=== PATIENT | female | born 1945 | race American Indian/Alaskan Native ===

== ENCOUNTER 2017-06-21 10:46 | Inpatient (IN) | payer MEDICARE ==
[2017-06-21 10:46] VITALS: BMI 30.5
[2017-06-21] MEDS ORDERED: Sodium Chloride 0.9% 1,000 ML IV ONE (11:34)
[2017-06-21] MEDS ORDERED: Sodium Chloride 0.9% 1,000 ML ONE (11:44)
[2017-06-21 11:48] LABS: BASO % 0.5 % (0.0-2.0); EOS # 0.1 K/uL (0.0-0.7); EOS % 1.2 % (0.0-4.0); HEMATOCRIT 41.1 % (34.0-47.0); LYMPH # 1.8 K/uL (1.0-4.3); MEAN CELL VOLUME 87.9 fL (81.0-99.0); MEAN CORPUSCULAR HEMOGLOBIN 30.4 pg (27.0-31.0); MEAN CORPUSCULAR HGB CONC 34.6 g/dL (33.0-37.0); MEAN PLATELET VOLUME 10.7 fL (7.2-11.7); MONO # 0.6 K/uL (0.0-0.8); MONO % 9.5 % (0.0-10.0); RED CELL DISTRIBUTION WIDTH 13.5 % (11.5-14.5); WHITE BLOOD COUNT 5.9 K/uL (4.8-10.8)
[2017-06-21 11:59] LABS: CHLORIDE 95 mmol/L (98-107); POTASSIUM 4.3 mmol/L (3.6-5.2); SODIUM 130 mmol/L (132-148)
--- NOTE | 2017-06-21 12:00 | RAD ---
HISTORY: chest pain COMPARISON: No prior. TECHNIQUE: Chest PA and lateral FINDINGS: LUNGS: No active pulmonary disease. PLEURA: No significant pleural effusion identified. No pneumothorax apparent. CARDIOVASCULAR: Normal. OSSEOUS STRUCTURES: No significant abnormalities. VISUALIZED UPPER ABDOMEN: Normal. OTHER FINDINGS: None. IMPRESSION: No active disease.
[2017-06-21 12:01] LABS: AST/SGOT 30 U/L (14-36); BILIRUBIN,TOTAL 0.6 mg/dL (0.2-1.3); CARBON DIOXIDE 27 mmol/L (22-30); GFR AFRICAN-AMERICAN > 60
[2017-06-21 12:02] LABS: ALB/GLOB RATIO 1.4 (1.0-2.1); ALKALINE PHOSPHATASE 105 U/L (38-126); ALT/SGPT 29 U/L (9-52); CALCIUM 9.2 mg/dl (8.6-10.4); GLUCOSE,RANDOM 294 mg/dL (65-105); TOTAL PROTEIN 7.5 g/dL (6.3-8.3)
[2017-06-21 12:05] LABS: BLOOD UREA NITROGEN 18 mg/dL (7-17)
--- NOTE | 2017-06-21 12:09 | CT ---
PROCEDURE: CT HEAD WITHOUT CONTRAST. HISTORY: dizziness COMPARISON: None available. TECHNIQUE: Axial computed tomography images were obtained through the head/brain without intravenous contrast. Radiation dose: Total exam DLP = 842.30 mGy-cm. This CT exam was performed using one or more of the following dose reduction techniques: Automated exposure control, adjustment of the mA and/or kV according to patient size, and/or use of iterative reconstruction technique. FINDINGS: HEMORRHAGE: No intracranial hemorrhage. BRAIN: Diffuse atrophy with prominence of the ventricles and sulci noted. No mass effect or edema. Intracranial atherosclerotic calcifications. Scattered periventricular and subcortical white matter hypodensities, which are nonspecific, but often seen with chronic microvascular ischemic disease. Please note that MRI with diffusion imaging is more sensitive in the detection of acute ischemic event. VENTRICLES: No hydrocephalus. CALVARIUM: Unremarkable. PARANASAL SINUSES: Unremarkable as visualized. No significant inflammatory changes. MASTOID AIR CELLS: Small fluid/opacification of the right mastoid air cells; correlate clinically for mastoiditis. The left mastoid air cells appear clear. OTHER FINDINGS: None. IMPRESSION: Generalized atrophy. Nonspecific white matter changes. Small fluid/opacification of the right mastoid air cells; correlate clinically for mastoiditis.
--- NOTE | 2017-06-21 12:38 | C.PDOC ---
History Of Present Illness 71 yo female w/PMHx of HTN, NIDDM, glaucoma come in for evaluation of dizziness describes as lightheaded gradual developed for past 3-4 days associated with weakness. Pt sts, " feels unsteady on my feet, was unable to go to [employer] yesterday". Otherwise, pt denies fever, chills, recent illness, denies headache , vertigo, blurry vision/change in vision, focal deficits, neck pain, CP, SOB, dyspnea, diaphoresis, palpitation, abd. pain, N/V/D, UTI sx. Ambulate to ED for evaluation, not in any apparent distress. Time Seen by Provider: 06/21/17 11:06 Chief Complaint (Nursing): Dizziness/Lightheaded History Per: Patient, Family Onset/Duration Of Symptoms: Gradual Current Symptoms Are (Timing): Still Present Past Medical History Reviewed: Historical Data, Nursing Documentation, Vital Signs Vital Signs: Last Vital Signs Temp 97.6 F 06/21/17 10:50 Pulse 82 06/21/17 15:45 Resp 17 06/21/17 15:45 BP 162/98 H 06/21/17 15:45 Pulse Ox 100 06/21/17 15:45 - Medical History PMH: Diabetes, HTN, Hypercholesterolemia Family History: States: No Known Family Hx - Social History Hx Tobacco Use: No Hx Alcohol Use: No Hx Substance Use: No - Immunization History Hx Tetanus Toxoid Vaccination: No Hx Influenza Vaccination: Yes Hx Pneumococcal Vaccination: No Review Of Systems Except As Marked, All Systems Reviewed And Found Negative. Constitutional: Negative for: Fever, Chills Eyes: Negative for: Vision Change ENT: Negative for: Ear Discharge, Nose Discharge, Throat Pain Cardiovascular: Positive for: Light Headedness. Negative for: Chest Pain, Palpitations, Orthopnea, Edema Respiratory: Negative for: Cough, Shortness of Breath Gastrointestinal: Negative for: Nausea, Vomiting, Abdominal Pain, Diarrhea Genitourinary: Negative for: Dysuria Musculoskeletal: Negative for: Neck Pain, Back Pain Skin: Negative for: Rash Neurological: Positive for: Dizziness. Negative for: Weakness, Numbness, Altered Mental Status, Headache Physical Exam - Physical Exam Appears: Well, Non-toxic, No Acute Distress Skin: Normal Color, Warm, Dry, No Rash Head: Normacephalic Eye(s): bilateral: PERRL Ear(s): Bilateral: Normal Nose: No Flaring, No Discharge Oral Mucosa: Moist, No Drooling Throat: No Erythema, No Exudate, No Drooling Neck: Trachea Midline, Supple Cardiovascular: Rhythm Regular, No Murmur, No JVD, Other ((-) carotid bruits B/L ) Respiratory: No Decreased Breath Sounds, No Accessory Muscle Use, No Stridor, No Wheezing Gastrointestinal/Abdominal: No Soft, No Tenderness, No Distention, No Guarding Back: No CVA Tenderness Extremity: Normal ROM, No Pedal Edema, No Deformity Neurological/Psych: Oriented x3, Normal Speech, Normal Motor, Normal Sensation, Normal Reflexes ED Course And Treatment - Laboratory Results Result Diagrams: 06/21/17 11:41 06/21/17 11:41 ECG: Interpreted By Me, Viewed By Me ECG Rhythm: Sinus Rhythm Interpretation Of ECG: SR@82/min, LAD, no acute ST-T canges. O2 Sat by Pulse Oximetry: 100 Pulse Ox Interpretation: Normal - Radiology CXR: Interpreted by Me, Viewed By Me, Read By Radiologist CXR Interpretation: Yes: No Acute Disease. No: Cardiomegaly, Pnemothorax - CT Scan/US Head w/o contrast Other Rad Studies (CT/US): Interpreted By Me, Read By Radiologist CT/US Interpretation: PROCEDURE: CT HEAD WITHOUT CONTRAST. HISTORY: dizziness. COMPARISON: None available. TECHNIQUE: Axial computed tomography images were obtained through the head/brain without intravenous contrast. Radiation dose: Total exam DLP = 842.30 mGy-cm. This CT exam was performed using one or more of the following dose reduction techniques: Automated exposure control, adjustment of the mA and/or kV according to patient size, and/ or use of iterative reconstruction technique. FINDINGS: HEMORRHAGE: No intracranial hemorrhage. BRAIN: Diffuse atrophy with prominence of the ventricles and sulci noted. No mass effect or edema. Intracranial atherosclerotic calcifications. Scattered periventricular and subcortical white matter hypodensities, which are nonspecific, but often seen with chronic microvascular ischemic disease. Please note that MRI with diffusion imaging is more sensitive in the detection of acute ischemic event. VENTRICLES: No hydrocephalus. CALVARIUM: Unremarkable. PARANASAL SINUSES: Unremarkable as visualized. No significant inflammatory changes. MASTOID AIR CELLS: Small fluid/opacification of the right mastoid air cells; correlate clinically for mastoiditis. The left mastoid air cells appear clear. OTHER FINDINGS: None. IMPRESSION: Generalized atrophy. Nonspecific white matter changes. Small fluid/opacification of the right mastoid air cells; correlate clinically for mastoiditis. Progress Note: Pt reamined stable during the ED eavluation. Afebrile, hemodynamicaly stable. NO-toxic. Neuorlogicaly intact. Diagnostics and imaging review, case discussed with ED attending and admission recommend. Case discussed with and admission recommend to med service. Case discussed with and admission arranged. NIHSS Stroke Scale 2 - Date/Time Evaluation Performed Date Performed: 06/21/17 Time Performed: 11:05 When Was NIHSS Performed: Baseline - How Severe is the Stroke Level of Consciousness: 0=Alert LOC to Questions: 0=Both comments correct LOC to commands: 0=Obeys both correctly Best Gaze: 0=Normal Visual: 0=No visual loss Facial: 0=Normal Motor Arm - Left: 0=No drift Motor Arm - Right: 0=No drift Motor Leg - Left: 0=No drift Motor Leg - Right: 0=No drift Limb Ataxia: 0=Absent Sensory: 0=Normal Best Language: 0=No aphasia Dysarthia: 0=Normal articulation Extinction & Inattention (Neglect): 0=Normal, no object Score: 0 Disposition - Disposition Disposition: HOSPITALIZED Disposition Time: 12:43 Condition: STABLE - Clinical Impression Clinical Impression: Dizziness, CVA (cerebral vascular accident)
[2017-06-21] MEDS ORDERED: Enalaprilat 2.5 MG/2 ML IV ONE (15:46)
[2017-06-21 17:13] LABS: URINE BACTERIA RARE (<OCC); URINE BILIRUBIN NEGATIVE (NEGATIVE); URINE BLOOD NEGATIVE (NEGATIVE); URINE COLOR Yellow (YELLOW); URINE GLUCOSE (UA) 3+ mg/dL (Normal); URINE KETONE NEGATIVE (NEGATIVE); URINE LEUKOCYTE ESTERASE NEG Leu/uL (Negative); URINE PROTEIN NEGATIVE (NEGATIVE); URINE UROBILINOGEN NORMAL mg/dL (0.2-1.0); WBC URINE 2 /hpf (0-5)
[2017-06-21] MEDS ORDERED: Enoxaparin 40 mg Syringe ONE (17:41)
[2017-06-21] MEDS ORDERED: Pantoprazole 40 mg EC Tab PO ONE (17:42)
[2017-06-21] MEDS: Enoxaparin 40 mg Syringe SC SCH (17:50)
[2017-06-21] MEDS: Pantoprazole 40 mg EC Tab PO SCH (17:50)
--- NOTE | 2017-06-21 19:06 | CP.PCM.PN ---
Subjective - Date & Time of Evaluation Date of Evaluation: 06/21/17 Time of Evaluation: 12:40 - Subjective Subjective: clinically same Objective - Vital Signs/Intake and Output Vital Signs (last 24 hours): Temp Pulse Resp BP Pulse Ox 97.6 F 87 12 107/55 L 98 06/21/17 10:50 06/21/17 17:49 06/21/17 17:49 06/21/17 17:50 06/21/17 17:49 - Medications Medications: Current Medications Aspirin (Aspirin) 325 mg PO DAILY [facility] Enoxaparin Sodium (Lovenox) 40 mg SC DAILY [facility] Last Admin: 06/21/17 17:50 Dose: 40 mg Meclizine HCl (Antivert) 25 mg PO TID [facility] Last Admin: 06/21/17 17:50 Dose: 25 mg Pantoprazole Sodium (Protonix Ec Tab) 40 mg PO DAILY [facility] Last Admin: 06/21/17 17:50 Dose: 40 mg Rosuvastatin Calcium (Crestor) 10 mg PO HS [facility] - Labs Labs: 06/21/17 11:41 06/21/17 11:41 PT 11.2 SECONDS (9.7-12.2) 06/21/17 11:41 INR 1.0 06/21/17 11:41 APTT 29 SECONDS (21-34) 06/21/17 11:41 - Constitutional Appears: Well - Head Exam Head Exam: ATRAUMATIC, NORMAL INSPECTION, NORMOCEPHALIC - Eye Exam Eye Exam: EOMI, Normal appearance, PERRL Pupil Exam: NORMAL ACCOMODATION, PERRL - ENT Exam ENT Exam: Mucous Membranes Moist, Normal Exam - Neck Exam Neck Exam: Full ROM, Normal Inspection. absent: Lymphadenopathy - Respiratory Exam Respiratory Exam: Decreased Breath Sounds - Cardiovascular Exam Cardiovascular Exam: REGULAR RHYTHM, +S1, +S2 - GI/Abdominal Exam GI & Abdominal Exam: Soft, Diminished Bowel Sounds - Rectal Exam Rectal Exam: Deferred
--- NOTE | 2017-06-21 19:07 | CP.PCM.HP ---
Past Patient History - Infectious Disease Hx of Infectious Diseases: None - Past Social History Smoking Status: Never Smoked - CARDIAC Hx Hypercholesterolemia: Yes Hx Hypertension: Yes - ENDOCRINE/METABOLIC Hx Endocrine Disorders: Yes Hx Diabetes Mellitus Type 2: Yes - PSYCHIATRIC Hx Substance Use: No - SURGICAL HISTORY Hx Surgeries: No Meds Allergies/Adverse Reactions: Allergies Allergy/AdvReac Type Severity Reaction Status Date / Time peanut Allergy Intermediate COUGH Verified 06/21/17 10:55 Physical Exam - Constitutional Appears: Well - Head Exam Head Exam: ATRAUMATIC, NORMAL INSPECTION, NORMOCEPHALIC - Eye Exam Eye Exam: EOMI, Normal appearance, PERRL Pupil Exam: NORMAL ACCOMODATION, PERRL - ENT Exam ENT Exam: Mucous Membranes Moist, Normal Exam - Neck Exam Neck exam: Positive for: Normal Inspection - Respiratory Exam Respiratory Exam: Decreased Breath Sounds - Cardiovascular Exam Cardiovascular Exam: REGULAR RHYTHM, +S1, +S2 - GI/Abdominal Exam GI & Abdominal Exam: Diminished Bowel Sounds, Soft - Rectal Exam Rectal Exam: Deferred Results - Vital Signs Recent Vital Signs: Last Vital Signs Temp 97.6 F 06/21/17 10:50 Pulse 87 06/21/17 17:49 Resp 12 06/21/17 17:49 BP 107/55 L 06/21/17 17:50 Pulse Ox 98 06/21/17 17:49 - Labs Result Diagrams: 06/21/17 11:41 06/21/17 11:41 Labs: Laboratory Results - last 24 hr 06/21/17 06/21/17 06/21/17 11:41 11:41 11:41 WBC 5.9 RBC 4.67 Hgb 14.2 Hct 41.1 MCV 87.9 MCH 30.4 MCHC 34.6 RDW 13.5 Plt Count 196 MPV 10.7 Neut % (Auto) 57.8 Lymph % (Auto) 31.0 Wise % (Auto) 9.5 Eos % (Auto) 1.2 Baso % (Auto) 0.5 Neut # 3.4 Lymph # 1.8 Wise # 0.6 Eos # 0.1 Baso # 0.0 PT 11.2 INR 1.0 APTT 29 Sodium 130 L Potassium 4.3 Chloride 95 L Carbon Dioxide 27 Anion Gap 12 BUN 18 H Creatinine 0.7 Est GFR ( Amer) > 60 Est GFR (Non-Af Amer) > 60 Random Glucose 294 H Calcium 9.2 Total Bilirubin 0.6 AST 30 ALT 29 Alkaline Phosphatase 105 Troponin I < 0.0120 NT-Pro-B Natriuret Pep 15.6 Total Protein 7.5 Albumin 4.4 Globulin 3.1 Albumin/Globulin Ratio 1.4 Urine Color Urine Clarity Urine pH Ur Specific [place] Urine Protein Urine Glucose (UA) Urine Ketones Urine Blood Urine Nitrate Urine Bilirubin Urine Urobilinogen Ur Leukocyte Esterase Urine WBC (Auto) Ur Squamous Epith Cells Urine Bacteria 06/21/17 17:00 WBC RBC Hgb Hct MCV MCH MCHC RDW Plt Count MPV Neut % (Auto) Lymph % (Auto) Wise % (Auto) Eos % (Auto) Baso % (Auto) Neut # Lymph # Wise # Eos # Baso # PT INR APTT Sodium Potassium Chloride Carbon Dioxide Anion Gap BUN Creatinine Est GFR ( Amer) Est GFR (Non-Af Amer) Random Glucose Calcium Total Bilirubin AST ALT Alkaline Phosphatase Troponin I NT-Pro-B Natriuret Pep Total Protein Albumin Globulin Albumin/Globulin Ratio Urine Color Yellow Urine Clarity Hazy Urine pH 6.0 Ur Specific [place] 1.015 Urine Protein Negative Urine Glucose (UA) 3+ H Urine Ketones Negative Urine Blood Negative Urine Nitrate Negative Urine Bilirubin Negative Urine Urobilinogen Normal Ur Leukocyte Esterase Neg Urine WBC (Auto) 2 Ur Squamous Epith Cells 3 Urine Bacteria Rare
[2017-06-22 06:23] LABS: BASO % 0.2 % (0.0-2.0); EOS # 0.1 K/uL (0.0-0.7); HEMATOCRIT 37.6 % (34.0-47.0); LYMPH # 2.5 K/uL (1.0-4.3); LYMPH % 42.7 % (20.0-40.0); MEAN CELL VOLUME 88.2 fL (81.0-99.0); MEAN CORPUSCULAR HEMOGLOBIN 30.2 pg (27.0-31.0); MEAN CORPUSCULAR HGB CONC 34.3 g/dL (33.0-37.0); MEAN PLATELET VOLUME 10.4 fL (7.2-11.7); MONO # 0.6 K/uL (0.0-0.8); MONO % 9.7 % (0.0-10.0); RED CELL DISTRIBUTION WIDTH 13.4 % (11.5-14.5); WHITE BLOOD COUNT 5.8 K/uL (4.8-10.8)
[2017-06-22 06:30] LABS: CHLORIDE 99 mmol/L (98-107); POTASSIUM 4.1 mmol/L (3.6-5.2); SODIUM 132 mmol/L (132-148)
[2017-06-22 06:32] LABS: CHOLESTEROL 166 mg/dL (0-199); GFR AFRICAN-AMERICAN > 60
[2017-06-22 06:33] LABS: BLOOD UREA NITROGEN 16 mg/dL (7-17); CARBON DIOXIDE 25 mmol/L (22-30); GLUCOSE,RANDOM 286 mg/dL (65-105)
[2017-06-22 06:34] LABS: CALCIUM 9.1 mg/dl (8.6-10.4); MAGNESIUM 1.6 mg/dL (1.6-2.3); PHOSPHOROUS 3.8 mg/dL (2.5-4.5)
--- NOTE | 2017-06-22 07:21 | CON ---
NEUROLOGY CONSULTATION DATE: REASON FOR CONSULTATION: Dizziness. HISTORY OF PRESENT ILLNESS: The patient is a 71-year-old female who has been asked for evaluation of dizziness. The patient states that when she woke up yesterday, she started experiencing dizziness, which is described as lightheaded feeling. She did not had any vomiting, but felt nauseous. Did not had any loss of vision. Did not had any focal weakness in arms or legs. Since she was not getting better, she was decided to come to the emergency room. At that moment, she said she is feeling a lot better. Her dizziness is almost gone. She denies any other complaints. REVIEW OF SYSTEMS: Denies any headache, chest pain, shortness of breath, abdominal pain, constipation, diarrhea, dysuria, pyuria, cough, sputum production, or hallucinations. PAST MEDICAL HISTORY: Includes hypertension, diabetes mellitus, and hypercholesterolemia. MEDICATIONS AT HOME: Include metformin, simvastatin, and enalapril. ALLERGIES: PEANUT. SOCIAL HISTORY: She denies smoking, use of alcohol, or illicit drugs. FAMILY HISTORY: Reviewed and noncontributory to the case. PHYSICAL EXAMINATION: GENERAL: The patient is an elderly pleasant female lying on the bed, in no acute distress. VITAL SIGNS: Blood pressure is 107/55, heart rate is 87 per minute, breathing at a rate of 16 per minute, and temperature is 97.6 degrees Fahrenheit. HEENT: Head is normocephalic and atraumatic. NECK: Supple. There are no carotid bruits. LUNGS: Clear. CARDIOVASCULAR: S1 and S2 audible. No murmurs. ABDOMEN: Soft and nontender. Bowel sounds are present. NEUROLOGY: Mental status: The patient is awake, alert, and oriented to time, place and person. Speech is fluent. Naming and repetition is normal. Memory and cognition appear intact. Cranial nerve examination: Pupils; 3 mm bilaterally reactive to light. Visual barron are full. Extraocular movements are intact. There is no facial asymmetry. Palate is upgoing bilaterally and tongue is midline. Motor examination: Tone is normal. Power is 5/5 bilaterally in all extremities. Reflexes are +1 and symmetrical. Plantars are downgoing bilaterally. Cerebellar examination; [id number] shows no dysmetria. Gait is narrow based. Sensory examination: Intact to soft touch and pinprick. LABORATORY DATA: Revealed. CT scan of the head shows generalized atrophy, nonspecific white matter changes. Her blood work including WBC shows 5.9, hemoglobin of 14.2, hematocrit 41.1, and platelets of 196. Sodium is 130, potassium is 4.3, chloride of 95, carbon dioxide of 27, BUN of 18, creatinine 0.7, and glucose of 294. Her urinalysis shows WBCs of 2 and nitrite negative. 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 RECOMMENDATIONS: 1. The patient to have an MRI of the brain without contrast. 2. The patient also to have an electroencephalogram. 3. If the patient's dizziness is better now, we will hold off Antivert; however, if she get dizzy again, we will consider restarting her on Antivert. 4. Please continue other treatment and supportive care. Thank you for the opportunity to participate in the care of this patient. Leander Page MD
--- NOTE | 2017-06-22 09:34 | MRI ---
PROCEDURE: MRI BRAIN WITHOUT CONTRAST HISTORY: dizziness COMPARISON: Prior head CT 06/21/2017. TECHNIQUE: Multiplanar, multisequence MR images of the brain were obtained without intravenous contrast enhancement. FINDINGS: HEMORRHAGE: None DWI: No evidence of an acute or early subacute infarction. BRAIN PARENCHYMA: Diffuse expansion of the ventriculosulcal and cisternal spaces is appreciated with white matter signal changes compatible with diffuse cerebral atrophy and chronic microangiopathy. A small chronic lacune or dilated perivascular space is seen at the medial left temporal lobe anteriorly. The remaining brain parenchyma is unremarkable overall including the brainstem and cerebellum. There is no mass effect. There is no suspicious extra-axial collection. Midline brain anatomy appears grossly unremarkable including the corpus callosum and craniocervical junction. VENTRICLES: Unremarkable. No hydrocephalus. CRANIUM: Unremarkable. ORBITS: Grossly unremarkable. PARANASAL SINUSES/MASTOIDS: Right mastoid effusions identified. VASCULAR SYSTEM: Skull base flow voids intact. OTHER FINDINGS: None. IMPRESSION: Mild age related neuro degenerative changes are reiterated as well as the medial left temporal lobe chronic lacune. No acute intracranial findings including infarction at this time. Follow-up MRI or CT are available as clinically warranted. Incidental right mastoid effusions noted.
[2017-06-22] MEDS: Pantoprazole 40 mg EC Tab PO SCH (09:57)
[2017-06-22] MEDS: Enoxaparin 40 mg Syringe SC SCH (09:57)
[2017-06-22] MEDS: (Novolog) Insulin Aspart, Recombinant 100 u/ml 10 ml vial SC SCH ×2 (16:49→21:10)
--- NOTE | 2017-06-22 18:52 | CP.PCM.PN ---
Subjective - Date & Time of Evaluation Date of Evaluation: 06/22/17 Time of Evaluation: 14:00 - Subjective Subjective: clinically same Objective - Vital Signs/Intake and Output Vital Signs (last 24 hours): Temp Pulse Resp BP Pulse Ox 98.2 F 85 18 107/72 99 06/22/17 04:00 06/22/17 18:51 06/22/17 18:00 06/22/17 17:22 06/22/17 18:00 Intake and Output: 06/22/17 06/22/17 06:59 18:59 Intake Total 100 480 Output Total 0 Balance 100 480 - Medications Medications: Current Medications Aspirin (Aspirin) 325 mg PO DAILY [facility] Last Admin: 06/22/17 09:57 Dose: 325 mg Enalapril Maleate (Vasotec) 20 mg PO DAILY [facility] Last Admin: 06/22/17 12:24 Dose: 20 mg Enoxaparin Sodium (Lovenox) 40 mg SC DAILY [facility] Last Admin: 06/22/17 09:57 Dose: 40 mg Insulin Aspart (Novolog) 0 unit SC [facility] PRN Reason: Protocol Last Admin: 06/22/17 16:49 Dose: 6 unit Metformin HCl (Glucophage) 500 mg PO BID [facility] Last Admin: 06/22/17 17:52 Dose: 500 mg Pantoprazole Sodium (Protonix Ec Tab) 40 mg PO DAILY [facility] Last Admin: 06/22/17 09:57 Dose: 40 mg Pneumococcal Polyvalent Vaccine (Pneumovax 23 Vaccine) 0.5 ml IM .ONCE ONE Stop: 06/23/17 10:01 Rosuvastatin Calcium (Crestor) 10 mg PO [facility] Last Admin: 06/21/17 23:04 Dose: 10 mg - Labs Labs: 06/22/17 06:14 06/22/17 06:10 PT 11.2 SECONDS (9.7-12.2) 06/21/17 11:41 INR 1.0 06/21/17 11:41 APTT 29 SECONDS (21-34) 06/21/17 11:41 - Constitutional Appears: Well - Head Exam Head Exam: ATRAUMATIC, NORMAL INSPECTION, NORMOCEPHALIC - Eye Exam Eye Exam: EOMI, Normal appearance, PERRL Pupil Exam: NORMAL ACCOMODATION, PERRL - ENT Exam ENT Exam: Mucous Membranes Moist, Normal Exam - Neck Exam Neck Exam: Full ROM, Normal Inspection. absent: Lymphadenopathy - Respiratory Exam Respiratory Exam: Decreased Breath Sounds - Cardiovascular Exam Cardiovascular Exam: REGULAR RHYTHM, +S1, +S2 - GI/Abdominal Exam GI & Abdominal Exam: Soft, Diminished Bowel Sounds - Rectal Exam Rectal Exam: Deferred
[2017-06-22] MEDS ORDERED: (Lantus) Insulin Glargine, Recombinant SC SCH (22:00)
[2017-06-23] MEDS: (Novolog) Insulin Aspart, Recombinant 100 u/ml 10 ml vial SC SCH ×4 (08:00→12:10)
[2017-06-23] MEDS ORDERED: Pneumococcal 23-Valent Vaccine IM ONE (10:00)
[2017-06-23] MEDS: Pantoprazole 40 mg EC Tab PO SCH (10:30)
[2017-06-23] MEDS: Enoxaparin 40 mg Syringe SC SCH (10:30)
[2017-06-23 11:08] VITALS: BP 154/87
--- NOTE | 2017-06-23 11:10 | CON ---
DATE: ENDOCRINOLOGY CONSULTATION LOCATION: In ICU room 6. HISTORY OF PRESENT ILLNESS: This is a 71-year-old female with known history of type 2 diabetes, hypertension presenting here with sudden onset of dizziness and lightheadedness progressively worsening from the time of admission with supervening generalized body weakness, especially localized in the lower extremities with increasing dysequilibrium and unsteady gait as noted. She is being referred now for diabetic evaluation because of persistent hyperglycemic acceleration as noted. PAST MEDICAL HISTORY: As mentioned above, history of type 2 diabetes, currently on metformin given as 500 mg b.i.d. History of hypertension, cardiovascular disease, and dyslipidemia. FAMILY HISTORY: Positive for diabetes and hypertension. SOCIAL HISTORY: The patient has a supportive family. No known substance use. REVIEW OF SYSTEMS: As mentioned above, admits to generalized body weakness with increasing bouts of bifrontal headaches with supervening progressively worsening dizziness and lightheadedness, especially on the day of admission. No chest pains, palpitations or PNDs. Her oral intake has been variable with nausea, dyspepsia and vague upper abdominal pain with marked polyuria, nocturia and polydipsia as noted. PHYSICAL EXAMINATION: GENERAL: This is an average built male, in no apparent distress. VITAL SIGNS: Blood pressure 150/90, pulse of 70 beats per minute and regular, temperature is 98, respirations 20. Height is 5 feet 7 inches. Weight is 193 pounds. HEENT: Head is normocephalic. Eyes anicteric with pink conjunctivae. Funduscopy not possible at this time. Ears, nose, and throat otherwise normal. NECK: Supple. Thyroid gland is normal in size. No carotid bruits or cervical adenopathy. CARDIOPULMONARY: Adynamic precordium. S1, S2 is rapid and regular. LUNGS: Clear to auscultation. ABDOMEN: Flat, soft with positive bowel sounds. EXTREMITIES: No peripheral edema. Pulses are +2 bilaterally. LABORATORY DATA: Showed chemistry with a BUN of 16, sodium 132, potassium 4.1, chloride 99, CO2 of 25, glucose 286, creatinine 0.8. Her glucose levels have ranged from 275 to 370 and 374 mg/dL. ASSESSMENT: This is a 71-year-old female with uncontrolled and decompensated type 2 insulin requiring diabetes with marked hyperglycemic accelerations and clearly a suboptimal metabolic profile because of an A1c level of 14.8 here on admission to the hospital. The possibility of an acute cerebrovascular accident with vertebrobasilar insufficiency has to be excluded at this time with subsequent workup to be undertaken. She clearly has possible secondary pancreatic failure with supervening hyperglycemic accelerations which will clearly respond only to insulin therapy at this point in time. Also, pancreas recovers as endogenous pancreatic reserve, many people can go off the prandial insulin given as Humalog 6 units subcu t.i.d. before meals as ordered. However, we will continue the basal insulin with Lantus to be given as 12 units subcu at bedside daily as ordered. We will titrate incremental as indicated to optimize metabolic control. We will obtain serial chemistries and supplement accordingly as needed. We will also arrange for diabetic education and dietary instructions to include insulin self administration. We will follow as advised accordingly. Danika Dao MD
--- NOTE | 2017-06-23 11:50 | EEG ---
DATE: 06/22/2017 INTRODUCTION: This is a digitally recorded EEG monitoring using standard EEG montages. BACKGROUND RHYTHM: The EEG shows a background activity of 8 Hz alpha activity in parietooccipital region. The EEG activity is bilaterally symmetrical and synchronous. There is attenuation of the background activity on eye opening. Drowsiness was noted with slowing of the background activity. ABNORMAL POTENTIALS: No spike, sharp waves, or focal slowing was seen. PHOTIC STIMULATION AND HYPERVENTILATION: Photic stimulation did not reveal any abnormality. Hyperventilation was not performed. IMPRESSION: Normal electroencephalogram. No epileptiform activity is seen in this electroencephalogram recording. Leander Page MD
[2017-06-23 12:25] VITALS: TEMP 98.2
[2017-06-23 12:26] VITALS: PULSE 83; RESP 20; O2SAT 98
--- NOTE | 2017-06-23 13:30 | PN ---
DATE: NEUROLOGY PROGRESS NOTE SUBJECTIVE: The patient is lying on the bed, in no acute distress. Denies having any further dizziness. PHYSICAL EXAMINATION VITAL SIGNS: Her blood pressure is 140/83, heart rate is 86 per minute, breathing at a rate of 16 per minute and her temperature is 98.2 degree Fahrenheit. HEENT: Normocephalic, atraumatic. NECK: Supple. There are no carotid bruits. LUNGS: Clear. CVS: S1 and S2 audible. No murmur. ABDOMEN: Soft and nontender. Bowel sounds are present. NEUROLOGY: Mental status: The patient is awake, alert, and oriented to time, place and person. Speech is fluent. Naming and repetition is normal. Memory and cognition are intact. Cranial nerve examination: Pupils 4 mm bilaterally reactive to light. Visual barron are full. Extraocular movements are intact. There is no facial asymmetry. She is moving all 4 extremities symmetrically. Power is 5/5 all over. Plantars downgoing bilaterally. 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 No intracranial finding including infarction at this time. She had an electroencephalogram, which is normal. IMPRESSION: 1. 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 2. Cerebrovascular disease. RECOMMENDATION: 1. The patient has no further episode of dizziness. 2. The patient to be continued on aspirin because of her underlying cerebrovascular disease. 3. If patient has recurrence of dizziness, then consider starting her on meclizine. 4. The patient is neurologically stable for discharge. 5. No further neurologic recommendation. Please follow Neurology on an as needed basis. Thank you for the opportunity to participate in the care of this patient. Leander Page MD
--- NOTE | 2017-06-23 20:19 | CP.PCM.PN ---
Subjective - Date & Time of Evaluation Date of Evaluation: 06/23/17 Time of Evaluation: 14:00 - Subjective Subjective: clinically same Objective - Vital Signs/Intake and Output Vital Signs (last 24 hours): Temp Pulse Resp BP Pulse Ox 98.2 F 83 20 154/87 H 98 06/23/17 12:00 06/23/17 12:00 06/23/17 12:00 06/23/17 11:07 06/23/17 09:22 Intake and Output: 06/23/17 06/24/17 18:59 06:59 Output Total 300 Balance -300 - Labs Labs: 06/22/17 06:14 06/22/17 06:10 PT 11.2 SECONDS (9.7-12.2) 06/21/17 11:41 INR 1.0 06/21/17 11:41 APTT 29 SECONDS (21-34) 06/21/17 11:41
--- NOTE | 2017-06-24 07:57 | PN ---
ENDOCRINOLOGY FOLLOW UP NOTE DATE: LOCATION: ICU room 6. SUBJECTIVE: This is a 71-year-old female admitted with sudden onset of dizziness and lightheadedness and undergoing neurological workup for possible acute CVA and is now being followed closely for metabolic management. Her glycemic levels are fluctuating, but much improved at this time. The latest glucose levels have ranged from 199 to 280 and 353 mg/dL. It was 380 earlier this morning as noted. The latest chemistry showed a BUN of 16, sodium 132, potassium 4.1, chloride 99, CO2 of 25, glucose 286, and creatinine is 0.8. Her hemoglobin A1c level is extremely elevated at 14.8%, clearly indicative of suboptimal metabolic control of her diabetic condition even prior to this admission. So at this time, we will continue the basal insulin given at the higher dose of Lantus at 20 units subcutaneous at bedtime daily to start tonight. We will continue the metformin given as 500 mg t.i.d. We would recommend Januvia given as 100 mg once daily in the morning as ordered. If hyperglycemic levels persists, especially with meal time, then we will need a premixed insulin regimen to be given twice daily before meals and/or a basal and bolus insulin regimen combination as ordered. We will titrate incremental as indicated to optimize metabolic control. We will follow and advise accordingly. Danika Dao MD
[2017-06-24] MEDS ORDERED: Influenza Vaccine 60 mcg/0.5 mL SYR (4YR UP) IM ONE (10:00)
== END 2017-06-23 14:00 | disposition home or self-care (01) | DRG 149 ==
LOC: C.ER 10:46 → C.9E 13:00 → C.9I 21:04
PROVIDERS: ADMIT Internal Medicine Nephrology; ATTEND Internal Medicine Nephrology
DX: H83.2X9 Labyrinthine dysfunction, unspecified ear (principal); E11.65 Type 2 diabetes mellitus with hyperglycemia; E78.00 Pure hypercholesterolemia, unspecified; I10 Essential (primary) hypertension; I25.10 Atherosclerotic heart disease of native coronary artery without angina pectoris; Z79.84 Long term (current) use of oral hypoglycemic drugs; Z79.4 Long term (current) use of insulin